=== PATIENT | male | born 1985 | race Two or more races ===

== ENCOUNTER 2021-12-03 16:39 | Emergency (ER) | payer SELFPAY ==
--- NOTE | ~2021-12-03 | CT_ITS ---
EXAMINATION: CT abdomen pelvis wo con DATE: 12/03/2021 17:37 INDICATION: Left lower quadrant pain TECHNIQUE: Computed tomography (CT) of the abdomen and pelvis was performed without intravenous contr ast. The dose-length product (DLP) was 1208.53 mGy-cm. Automated exposure control and iterative recon struction technique were employed. COMPARISON: None FINDINGS: The lung bases are clear. The heart size is normal. The liver is diffusely low in attenuati on when compared with the spleen, consistent with hepatic steatosis. The spleen, pancreas, gallbladde r, and adrenal glands are normal. There is a 2 mm stone at the left ureterovesicular junction which c auses mild left hydroureteronephrosis. There is a 3 mm nonobstructing stone of the right kidney. No p athologically enlarged abdominal or pelvic lymph nodes are identified. There is no free intraperitone al gas or evidence of bowel obstruction. IMPRESSION: 1. 2 mm stone of the left ureterovesicular junction causing mild left hydroureteronephrosis. 2. Nonobstructing right nephrolithiasis. Reviewed, dictated and finalized at location F. IMPRESSION: 1. 2 mm stone of the left ureterovesicular junction causing mild left hydrouret eronephrosis. 2. Nonobstructing right nephrolithiasis.
[2021-12-03 16:40] VITALS: BP 130/92; PULSE 104; RESP 24; TEMP 36.6; O2SAT 100
[2021-12-03 17:18] LABS: Basophils Percent Auto 0.3 % (0.2-1.2); Eosinophils Absolute Auto 0.2 K/mm3 (0-0.3); Eosinophils Percent Auto 1.8 % (0-4.4); Hematocrit 48.7 % (42.0-52.0); Hemoglobin 15.9 g/dL (14.0-18.0); Immature Granulocyte Absolute 0.05 K/mm3 (0.00-0.031); Immature Granulocyte Percent A 0.5 % (0-0.5); Lymphocytes Absolute Auto 3.28 K/mm3 (0.9-3.2); Lymphocytes Percent Auto 31.2 % (18.3-44.2); Mean Corpuscular HGB Conc 32.6 g/dl (32-36); Mean Corpuscular Volume 85.9 fl (80-100); Mean Platelet Volume 10.5 fl (7.4-10.4); Monocytes Absolute Auto 0.9 K/mm3 (0.1-0.6); Monocytes Percent Auto 8.2 % (2.6-8.5); Neutrophils Absolute Auto 6.1 K/mm3 (1.3-6.7); Platelet Count Result 273 k/mm3 (150-375); Red Blood Count 5.67 M/mm3 (4.6-6.20); Red Cell Distribution Width 12.9 % (11.5-14.5); White Blood Count 10.5 K/mm3 (4.5-10.0)
--- NOTE | 2021-12-03 17:23 | ED.ABDPAIN ---
HPI - Abdominal Pain General Chief Complaint: Abdominal Pain Stated Complaint: ABD Pain Time Seen by Provider: 12/03/21 16:59 Source: patient Mode of arrival: ambulatory Limitations: language barrier ([employer] operator used) History of Present Illness HPI narrative: This is a 36-year-old male that presents to the emergency department for left-sided abdominal pain ongoing over the last couple of hours. Associated with nausea and vomiting. Denies fever, dysuria, hematuria. Related Data Allergies Allergy/AdvReac Type Severity Reaction Status Date / Time No Known Allergies Allergy Verified 12/03/21 17:30 Review of Systems Review of Systems: CONSTITUTIONAL: Denies fever GASTROINTESTINAL: Denies abdominal pain, nausea, vomiting GENITOURINARY: Denies dysuria or hematuria. All systems reviewed & are unremarkable except as noted in HPI and below PMFSH Past Medical History Medical History (Updated 12/03/21 @ 19:38 by Joy Reyes PA-C) No active medical problems Social History Social History (Updated 12/03/21 @ 17:24 by Joy Reyes PA-C) Substance use: never Exam Narrative: GENERAL: Well-appearing, well-nourished, and in mild acute distress due to pain. HEAD: Normocephalic, atraumatic. EYES: EOMI. CHEST: Clear to auscultation. No respiratory distress. No wheezes rales or rhonchi HEART: Regular rate and rhythm. No murmur heard. Normal peripheral pulses. ABDOMEN: Soft, nontender, nondistended, normal active bowel sounds. EXTREMITIES: Normal range of motion. No edema. SKIN: Warm, dry, no rash. NEURO: No focal deficits. Alert and oriented x3. PSYCH: Normal mood and affect Course Vital Signs Vital signs: Vital Signs Temperature 97.8 F 12/03/21 16:40 Pulse Rate 104 H 12/03/21 16:40 Respiratory Rate 24 H 12/03/21 16:40 Blood Pressure 130/92 H 12/03/21 16:40 Pulse Oximetry 100 12/03/21 16:40 Temperature 97.8 F 12/03/21 16:40 Pulse Rate 104 H 12/03/21 16:40 Respiratory Rate 24 H 12/03/21 16:40 Blood Pressure 130/92 H 12/03/21 16:40 Pulse Oximetry 100 12/03/21 16:40 MDM - Abdominal Pain MDM Narrative Medical decision making narrative: Patient presents to the ER for left sided abdominal pain present over the last couple of hours. Patient is afebrile and nontoxic appearing. CBC with mild leukocytosis to 10.5. Metabolic panel without concerning findings. UA without evidence of infection. Does have blood present. CT scan of the abdomen and pelvis shows a 2 mm stone in the left UVJ causing mild left hydroureteronephrosis. Patient was updated on case findings. He reports relief with IV hydration and morphine. Patient will be started on Flomax and given pain medication and urine strainer. Will be given urology for follow-up. He is stable and felt appropriate for further outpatient evaluation. He was given warnings to return to the ER Lab Data Attestation: I reviewed the patient's lab results. Result diagrams: 12/03/21 17:10 12/03/21 17:10 Labs: Lab Results 12/03/21 12/03/21 12/03/21 Range/Units 17:10 17:10 19:05 WBC 10.5 H (4.5-10.0) K/mm3 RBC 5.67 (4.6-6.20) M/mm3 Hgb 15.9 (14.0-18.0) g/dL Hct 48.7 (42.0-52.0) % MCV 85.9 (80-100) fl MCH 28.0 (26-34) pg MCHC 32.6 (32-36) g/dl RDW 12.9 (11.5-14.5) % Plt Count 273 (150-375) k/mm3 MPV 10.5 H (7.4-10.4) fl Immature Gran % (Auto) 0.5 (0-0.5) % Neut % (Auto) 58.0 (45.5-73.1) % Lymph % (Auto) 31.2 (18.3-44.2) % Johnson % (Auto) 8.2 (2.6-8.5) % Eos % (Auto) 1.8 (0-4.4) % Baso % (Auto) 0.3 (0.2-1.2) % Lymph # (Auto) 3.28 H (0.9-3.2) K/mm3 Johnson # (Auto) 0.9 H (0.1-0.6) K/mm3 Eos # (Auto) 0.2 (0-0.3) K/mm3 Baso # (Auto) 0.0 (0.0-0.1) K/mm3 Abs Immat Gran (auto) 0.05 H (0.00-0.031) K/mm3 Absolute Neuts (auto) 6.1 (1.3-6.7) K/mm3 Absolute Nucleated RBC 0.0 (0.0-0.012) K/mm3 Nucleated R
[2021-12-03 17:30] LABS: Alanine Aminotransferase 38 U/L (4-50); Albumin Level 4.8 g/dL (3.5-5.1); Alkaline Phosphatase 121 U/L (38-126); Anion Gap 11 mmol/L (8-16); Aspartate Amino Transferase 32 U/L (17-59); Bilirubin,Total 0.8 mg/dL (0.2-1.3); Blood Urea Nitrogen 12 mg/dL (9-20); Carbon Dioxide 24 mmol/L (22-30); Chloride 108 mmol/L (98-107); Estimated CRCL calculation 104 ml/min; Estimated Glomerular Filt Rate > 60; Glucose 131 mg/dL (65-110); Lipase 64 U/L (23-300); Potassium 3.9 mmol/L (3.4-5.0); Sodium 143 mmol/L (137-145)
[2021-12-03] MEDS: MORPHINE SULFATE (*CRX) 4 MG/ML INJ IV PUSH (17:37)
[2021-12-03] MEDS: ONDANSETRON INJ 4 MG/2 ML VIAL IV PUSH (17:37)
[2021-12-03] MEDS: SODIUM CHLORIDE 0.9% IV 1,000 ML 999 ML IV CONT (17:38)
--- NOTE | 2021-12-03 18:30 | PC.NURSE ---
pt unable to urinate at this time. declining straight cath.
[2021-12-03 19:19] LABS: Appearance Urine Cloudy (Clear); Bilirubin Urine 1+ (Negative); Blood Urine 3+ (Negative); Color Urine Yellow (Yellow); Glucose Urine UA Negative (Negative); Ketones Urine Trace mg/dL (Negative); Leukocyte Esterase Ur Negative LEU/UL (Negative); Nitrate Urine Negative (Negative); Protein Urine 2+ mg/dL (Negative); Specific Grav Ur 1.025 (1.001-1.035); Urobilinogen Urine 0.2 mg/dL (<2.0); pH Urine 5.5 (5.0-9.0)
[2021-12-03 19:32] LABS: Bacteria Urine Trace /hpf; Mucus Urine Moderate /lpf; RBC Urine >75 /hpf (0-2); Squamous Epithelial Cell Urine Rare /hpf (Few); WBC Urine 0-3 /hpf
[2021-12-03 19:35] LABS: Add Urine Microscopic? YES
[2021-12-03 20:14] VITALS: BP 122/84; PULSE 106; RESP 16; O2SAT 96
== END 2021-12-03 20:17 | disposition home or self-care (01) ==
PROVIDERS: Physician Assistant; Emergency Provider Family Medicine
DX: N20.1 Calculus of ureter (principal)
CPT/HCPCS: 36415; 74176; 80053; 81001; 83690; 85025; 96361; 96374; 96375; 99284; J0131; J2270; J2405; J7030